=== PATIENT | female | born 1940 | race Caucasian/White ===

== ENCOUNTER 2022-01-15 14:02 | Emergency (ER) | payer OTHER, SELFPAY ==
--- NOTE | ~2022-01-15 | XR_ITS ---
EXAMINATION: XR chest 1V portable DATE: 01/15/2022 14:47 INDICATION: Weakness. COVID. TECHNIQUE: frontal view of the chest was obtained. COMPARISON: None FINDINGS: Mild opacities in the left lower lung zone. No pleural effusion or pneumothorax. The cardiomediastina l silhouette is normal. IMPRESSION: 1. Mild opacities in the left lower lung zone which could represent atelectasis or pneumonia. Reviewed, dictated and finalized at location A.
[2022-01-15 14:06] VITALS: BP 128/98; PULSE 111; RESP 20; TEMP 36.3; O2SAT 96
[2022-01-15 15:23] LABS: Basophils Percent Auto 0.4 % (0.2-1.2); Eosinophils Percent Auto 0.2 % (0-4.4); Hematocrit 40.8 % (37.0-47.0); Hemoglobin 13.1 g/dL (12.0-15.0); Immature Granulocyte Absolute 0.01 K/mm3 (0.00-0.031); Immature Granulocyte Percent A 0.2 % (0-0.5); Lymphocytes Percent Auto 20.7 % (18.3-44.2); Mean Corpuscular HGB Conc 32.1 g/dl (32-36); Mean Corpuscular Hemoglobin 29.2 pg (26-34); Mean Corpuscular Volume 90.9 fl (80-100); Mean Platelet Volume 9.4 fl (7.4-10.4); Monocytes Absolute Auto 0.7 K/mm3 (0.1-0.6); Monocytes Percent Auto 12.2 % (2.6-8.5); Neutrophils Absolute Auto 3.5 K/mm3 (1.3-6.7); Neutrophils Percent Auto 66.3 % (45.5-73.1); Platelet Count Result 244 k/mm3 (150-375); Red Blood Count 4.49 M/mm3 (4.2-5.4); Red Cell Distribution Width 14.3 % (11.5-14.5); White Blood Count 5.3 K/mm3 (4.5-10.0)
--- NOTE | 2022-01-15 15:24 | ED.GENADULT ---
HPI - General Adult General Chief complaint: Upper Respiratory Infection Stated complaint: weakness and diarrhea x 10 days, covid + 10 days Time Seen by Provider: 01/15/22 14:22 History of Present Illness HPI narrative: 81-year-old female with recent diagnosis of COVID presented to the emergency department for evaluation of generalized weakness due to decreased p.o. intake. Patient states she has had nausea without vomiting and has had a lot of diarrhea over the last few days. Patient states that she has been drinking Pedialyte and fluids but just feels generalized weakness. Patient states she does have some shortness of breath but states it is no different than her baseline shortness of breath. Related Data Home Medications Medication Instructions Recorded Confirmed aspirin 81 mg tablet,delayed 81 mg PO QPM 05/25/21 08/31/21 release (Franchesca Low Dose Aspirin) metformin 500 mg tablet See Rx Instructions .Route .COMPLEX 05/25/21 08/31/21 quinapril 40 mg tablet 40 mg PO QPM 05/25/21 08/31/21 simvastatin 40 mg tablet 40 mg PO QPM 05/25/21 08/31/21 verapamil 180 mg 24 hr 180 mg PO QAM 05/25/21 08/31/21 capsule,extended release gabapentin 300 mg capsule See Rx Instructions .Route .COMPLEX 08/31/21 08/31/21 Allergies Allergy/AdvReac Type Severity Reaction Status Date / Time nitrofurantoin Allergy Mild Dizziness Verified 08/31/21 10:52 Review of Systems Review of Systems: CONSTITUTIONAL: Generalized weakness EYES: Denies visual changes, redness, or discharge. ENT: Denies rhinorrhea, congestion, sore throat, or otalgia. CARDIOVASCULAR: Denies chest pain, palpitations, or edema. RESPIRATORY: Denies cough or dyspnea. GASTROINTESTINAL: Nausea and diarrhea GENITOURINARY: Denies dysuria or hematuria. SKIN: Denies rash or itching. MUSCULOSKELETAL: Denies back pain, joint pain, or myalgia. NEUROLOGIC: Denies headache, numbness, or weakness. [facility] Past Medical History Medical History Chicken pox Heel spur (~1994) History of cataract Vaginal infection Surgical History Surgical History History of cataract removal with insertion of prosthetic lens (~12/30/03) LEFT EYE History of cataract removal with insertion of prosthetic lens (~08/29/06) RIGHT EYE History of cholecystectomy (~1979) History of colonoscopy (~12/2001) History of colonoscopy (~11/2008) History of left knee replacement (~1999) History of lithotripsy (~09/06/08) Family History Family History Father , 71 Lung cancer Mother , 85 Natural Pneumonia Sibling Lung cancer Social History Social History Social History: Patient drinks caffeine daily. Smoking status: Never smoker Second hand tobacco smoke exposure: No Alcohol intake: never Substance use: never Substance use type: does not use Additional living arrangements comments: Patient is Gender identity (if verbalized by the patient): Female Sexual Orientation (if Verbalized by the Patient): Straight or Heterosexual Exam Narrative: APPEARANCE: Well appearing, no pain, no distress, well-nourished. HEAD: normocephalic, atraumatic. EYES: PERRLA/EOMI, conjunctivae clear. NOSE: Normal no drainage THROAT: Pharynx clear, no exudate. NECK: Supple. No adenopathy, no masses. RESPIRATORY: Airway patent, respirations nonlabored. Clear to auscultation bilaterally, no rales, rhonchi, wheezing. CARDIOVASCULAR: Regular rate and rhythm without murmurs rubs or gallops. ABDOMINAL: Soft, nontender, nondistended, normal bowel sounds MUSCULOSKELETAL: Moves all extremities. Strength/ROM intact, No edema, No calf tenderness. NEURO: Alert. Cranial nerves II through XII intact. Grossly intact SKIN: Warm, dry. Normal Color Course Course E
[2022-01-15 15:30] LABS: Lactic Acid Reflex 1.6 mmol/L (0.7-2.0)
[2022-01-15 15:30] LABS: Alanine Aminotransferase 17 U/L (6-35); Albumin Level 3.7 g/dL (3.5-5.1); Alkaline Phosphatase 84 U/L (38-126); Anion Gap 12 mmol/L (8-16); Aspartate Amino Transferase 37 U/L (14-36); Bilirubin,Total 0.8 mg/dL (0.2-1.3); Blood Urea Nitrogen 16 mg/dL (7-17); Calcium 8.8 mg/dL (8.4-10.2); Carbon Dioxide 19 mmol/L (22-30); Chloride 111 mmol/L (98-107); Estimated CRCL calculation 69 ml/min; Estimated Glomerular Filt Rate > 60; Glucose 123 mg/dL (65-110); Potassium 3.1 mmol/L (3.4-5.0); Sodium 142 mmol/L (137-145)
[2022-01-15 15:49] LABS: Atypical Lymphocytes Present; Platelet Estimate Adequate (Adequate)
[2022-01-15] MEDS: POTASSIUM CHLORIDE 20 MEQ PACKET (FOR LIQUID) 40 MEQ PO (16:02)
[2022-01-15 16:03] VITALS: BP 143/62; PULSE 86; RESP 16; O2SAT 96
[2022-01-15 16:45] VITALS: BP 121/83; PULSE 95; RESP 16; O2SAT 96
[2022-01-15 17:53] VITALS: BP 121/83; PULSE 93; RESP 16; O2SAT 94
== END 2022-01-15 17:56 | disposition home or self-care (01) ==
PROVIDERS: Emergency Provider Emergency Medicine; PCP Emergency Medicine
DX: R19.7 Diarrhea, unspecified (principal); R11.0 Nausea; Z86.16 Personal history of COVID-19; Z98.42 Cataract extraction status, left eye; Z98.41 Cataract extraction status, right eye; Z96.1 Presence of intraocular lens; Z79.84 Long term (current) use of oral hypoglycemic drugs; Z79.82 Long term (current) use of aspirin; Z96.652 Presence of left artificial knee joint
CPT/HCPCS: 36415; 71045; 80053; 83605; 85025; 99283; A9270

== ENCOUNTER 2025-05-04 16:27 | Emergency (ER) | payer MEDICARE, SELFPAY ==
[2025-05-04 16:30] VITALS: BP 123/76; PULSE 94; RESP 12; TEMP 36.4; O2SAT 98
[2025-05-04 17:40] LABS: Hematocrit 34.7 % (37.0-47.0); Hemoglobin 10.8 g/dL (12.0-15.0); Immature Granulocyte Percent A 0.5 % (0-0.5); Lymphocytes Absolute Auto 1.66 K/mm3 (0.9-3.2); Mean Corpuscular HGB Conc 31.1 g/dl (32-36); Mean Corpuscular Hemoglobin 30.3 pg (26-34); Mean Corpuscular Volume 97.2 fl (80-100); Nucleated Red Blood Cells Absolute Auto 0.000 K/mm3 (0.0-0.012); Nucleated Red Blood Cells Perc 0.0 % (0.0-0.2); Platelet Count Result 285 k/mm3 (150-375); Red Blood Count 3.57 M/mm3 (4.2-5.4); White Blood Count 10.7 K/mm3 (4.5-10.0)
[2025-05-04] MEDS: SODIUM CHLORIDE 0.9% IV 1,000 ML 999 ML IV CONT (17:40)
[2025-05-04 17:48] VITALS: BP 118/70; PULSE 93; RESP 14; O2SAT 100
[2025-05-04 17:52] LABS: INR 1.1; Partial Thromboplastin Time 27.1 Seconds (22.3-36.8); Prothrombin Time 13.9 Seconds (11.1-14.7)
[2025-05-04 17:54] LABS: Alanine Aminotransferase 12 U/L (6-35); Albumin Level 2.7 g/dL (3.5-5.1); Alkaline Phosphatase 67 U/L (38-126); Anion Gap 5 mmol/L (4-12); Aspartate Amino Transferase 19 U/L (14-36); Bilirubin,Total 0.3 mg/dL (0.2-1.3); Blood Urea Nitrogen 21 mg/dL (7-17); Calcium 9.4 mg/dL (8.4-10.2); Carbon Dioxide 24 mmol/L (22-30); Chloride 109 mmol/L (98-107); Estimated CRCL calculation 41 ml/min; Estimated Glomerular Filt Rate 45; Glucose 104 mg/dL (65-110); Need Manual Microscopic Reviewed; Non Pathogenic Casts 0-2; Potassium 5.0 mmol/L (3.4-5.0); Sodium 138 mmol/L (137-145); Total Protein 6.1 g/dL (6.3-8.2)
[2025-05-04 17:55] LABS: Add Urine Microscopic? YES; Appearance Urine Turbid (Clear); Glucose Urine UA Negative (Negative); Leukocyte Esterase Ur 2+ LEU/UL (Negative); Nitrate Urine Positive (Negative); Specific Grav Ur 1.023 (1.001-1.035)
--- NOTE | 2025-05-04 18:35 | ED.GENADULT ---
HPI - General Adult General Chief complaint: Urogenital-Female Stated complaint: hematuria in chester Time Seen by Provider: 05/04/25 16:42 History of Present Illness HPI narrative: Patient is an 85-year-old female who presents ER for blood in her Chester catheter. Patient had a Chester catheter placed today due to urinary retention. Apparently they only got out 360 mL of urine. But there was dark blood in the urine study sent her here for evaluation. Patient previously had issues with kidney stones in a urinary infection that led to a procedure at [facility] and is or E and then her subsequent placement in a facility in [place]. Patient has no abdominal pain. Denies fevers or chills or sweats. No additional concerns. She is not on any blood thinning medications. Related Data Home Medications ?Medication ?Instructions ?Recorded ?Confirmed ?Last Taken ?Type aspirin 81 mg tablet,delayed 81 mg PO QPM 05/25/21 11/05/24 Unknown History release (Franchesca Low Dose Aspirin) Allergies Allergy/AdvReac Type Severity Reaction Status Date / Time sulfamethoxazole (From Allergy Intermediate Itching Verified 11/05/24 14:11 Bactrim) trimethoprim (From Bactrim) Allergy Intermediate Itching Verified 11/05/24 14:11 nitrofurantoin Allergy Mild Dizziness Verified 11/05/24 14:11 Review of Systems Review of Systems: All systems reviewed & are unremarkable except as noted in HPI and below Constitutional: Constitutional: Reports no additional constitutional complaints Cardiovascular: Cardiovascular: Reports no additional cardiovascular complaints Respiratory: Respiratory: Reports no additional respiratory complaints Gastrointestinal: Gastrointestinal: Reports no additional gastrointestinal complaints Genitourinary: Genitourinary: Reports no additional female genitourinary complaints [facility] Past Medical History Medical History Gout Dyspnea on exertion UTI (urinary tract infection) Dysuria Heel spur (~1994) Vaginal infection Stomach pain Poor appetite Painful urination Frequent urination Chicken pox History of cataract Surgical History Surgical History History of lithotripsy (~09/06/08) History of cataract removal with insertion of prosthetic lens (~08/29/06) RIGHT EYE History of cataract removal with insertion of prosthetic lens (~12/30/03) LEFT EYE History of left knee replacement (~1999) History of colonoscopy (~11/2008) History of colonoscopy (~12/2001) History of cholecystectomy (~1979) Family History Family History Father , 71 Lung cancer Mother , 85 Natural Pneumonia Sibling Lung cancer Social History Social History Social History: Patient drinks caffeine occasionally. Smoking status: Never smoker Second hand tobacco smoke exposure: No Alcohol intake: former Substance use: never Substance use type: does not use Lack of Transportation: No Lack of Food: Never True Current Housing: I Have Housing Concerned About Future Housing: No Difficulty Paying Gas/Electric Bills: No Difficulty Paying for Meds: No Currently Unemployed: No Education: High School Diploma/GED Difficulty w/ Childcare or Family Care: No Living arrangements: alone Additional living arrangements comments: Patient is Occupation/Education: retired Gender identity (if verbalized by the patient): Female Sexual Orientation (if Verbalized by the Patient): Straight or Heterosexual Exam Narrative: GENERAL: Well-appearing, well-nourished, and in no acute distress. HEAD: Normocephalic, atraumatic. ENT: Mucous membranes moist. CHEST: Clear to auscultation. No respiratory distress. HEART: Regular rate and rhythm. Normal peripheral pulses. ABDOMEN: Soft, nontender, nondistended. EXTREMITIES: Normal range of motion. No edema. SKIN: Warm, dry, no rash. NEURO:Alert and oriented x3. PSYCH: Normal mood and affect. Course Course Emergency Course: Dark blood that looks like sediment from Chester. Chester irrigated and there are no clots. Urine is now with a brownish appearance and not bright red blood. Will place on antibiotic in case there is infection but there is no bacteria on the urinalysis yeah is nitrate positive. Patient appropriate for discharge back to her facility. Patient has follow-up with her urologist in 2 days. Vital Signs Vital signs: Vital Signs Temperature 97.6 F 05/04/25 16:30 Pulse Rate 94 05/04/25 16:30 Respiratory Rate 12 05/04/25 16:30 Blood Pressure 123/76 05/04/25 16:30 Pulse Oximetry 98 05/04/25 16:30 Oxygen Delivery Room Air 05/04/25 16:30 Temperature 97.6 F 05/04/25 16:30 Pulse Rate 93 05/04/25 17:48 Respiratory Rate 14 05/04/25 17:48 Blood Pressure 118/70 05/04/25 17:48 Pulse Oximetry 100 05/04/25 17:48 Oxygen Delivery Room Air 05/04/25 16:30 MDM Differential Diagnosis Differential Diagnosis: Urinary retention, kidney stone, cystitis, bladder stone, bladder clots Lab Data [facility] Lab Attestation statement: I personally reviewed the patient's lab results. 05/04/25 17:33 05/04/25 17:33 Labs: Lab Results 05/04/25 Range/Units 17:33 WBC 10.7 H (4.5-10.0) K/mm3 RBC 3.57 L (4.2-5.4) M/mm3 Hgb 10.8 L (12.0-15.0) g/dL Hct 34.7 L (37.0-47.0) % MCV 97.2 (80-100) fl MCH 30.3 (26-34) pg MCHC 31.1 L (32-36) g/dl RDW 16.2 H (11.5-14.5) % Plt Count 285 (150-375) k/mm3 MPV 8.9 (7.4-10.4) fl Immature Gran % (Auto) 0.5 (0-0.5) % Neut % (Auto) 78.3 H (45.5-73.1) % Lymph % (Auto) 15.6 L (18.3-44.2) % [place] % (Auto) 4.9 (2.6-8.5) % Eos % (Auto) 0.4 (0-4.4) % Baso % (Auto) 0.3 (0.2-1.2) % Lymph # (Auto) 1.66 (0.9-3.2) K/mm3 [place] # (Auto) 0.5 (0.1-0.6) K/mm3 Eos # (Auto) 0.0 (0-0.3) K/mm3 Baso # (Auto) 0.0 (0.0-0.1) K/mm3 Abs Immat Gran (auto) 0.05 H (0.00-0.031) K/mm3 Absolute Neuts (auto) 8.4 H (1.3-6.7) K/mm3 Absolute Nucleated RBC 0.000 (0.0-0.012) K/mm3 Nucleated RBC % 0.0 (0.0-0.2) % PT 13.9 (11.1-14.7) Seconds INR 1.1 APTT 27.1 (22.3-36.8) Seconds Sodium 138 (137-145) mmol/L Potassium 5.0 (3.4-5.0) mmol/L Chloride 109 H (98-107) mmol/L Carbon Dioxide 24 (22-30) mmol/L Anion Gap 5 (4-12) mmol/L BUN 21 H (7-17) mg/dL Creatinine 1.15 H (0.7-1.0) mg/dL Estim Creat Clear Calc 41 ml/min Estimated GFR 45 L (59 - ) Glucose 104 (65-110) mg/dL Calcium 9.4 (8.4-10.2) mg/dL Total Bilirubin 0.3 (0.2-1.3) mg/dL AST 19 (14-36) U/L ALT 12 (6-35) U/L Alkaline Phosphatase 67 (38-126) U/L Total Protein 6.1 L (6.3-8.2) g/dL Albumin 2.7 L (3.5-5.1) g/dL Urine Color Brown H (Yellow) Urine Appearance Turbid H (Clear) Urine pH 5.0 (5.0-9.0) Ur Specific [place] 1.023 (1.001-1.035) Urine Protein 1+ H (Negative) mg/dL Urine Glucose (UA) Negative (Negative) mg/dL Urine Ketones Negative (Negative) mg/dL Ur Blood (Man) 1+ H (Negative) Urine Nitrate Positive H (Negative) Urine Bilirubin 1+ H (Negative) Urine Urobilinogen 0.2 (<2.0) mg/dL Add Ur Microanalysis Reviewed Leukocyte Esterase Rfl 2+ H (Negative) KARLI/UL Urine RBC >100 H (0-2) /hpf Urine WBC 51-100 H (0-3) /hpf Ur Squamous Epith Cells Few (Few) /hpf Amorphous Sediment Few H (None) Urine Bacteria None seen /hpf Urine Casts 0-2 Discharge Plan Discharge Clinical Impression: Hematuria, Acute UTI Patient Disposition: Home Condition: Stable Instructions: Antibiotic Form, Urinary Tract Infection in Women (ED) Additional Instructions: You should return to the emergency department if you develop severe nausea and vomiting and are unable to keep liquids down, if you develop severe back/flank or stomach pain, or if your symptoms are not clearly improving at home. Keep your urology follow-up. Patient Language: Persian Prescriptions: New cefuroxime axetil 500 mg tablet 500 mg PO BID Qty: 14 0RF No Action aspirin [Franchesca Low Dose Aspirin] 81 mg tablet,delayed release (DR/EC) 81 mg PO QPM cholecalciferol (vitamin D3) 1,250 mcg (50,000 unit) capsule See Rx Instructions .ROUTE .COMPLEX Qty: 12 2RF Dose Instruction: TAKE 1 CAPSULE BY MOUTH ONE TIME PER WEEK Rx Instructions: TAKE 1 CAPSULE BY MOUTH ONE TIME PER WEEK verapamil 180 mg tablet extended release See Rx Instructions .ROUTE .COMPLEX Qty: 90 2RF Dose Instruction: TAKE 1 TABLET BY MOUTH EVERY DAY IN THE MORNING Rx Instructions: TAKE 1 TABLET BY MOUTH EVERY DAY IN THE MORNING metformin 500 mg tablet See Rx Instructions .ROUTE .COMPLEX Qty: 180 2RF Dose Instruction: TAKE 1 TABLET BY MOUTH EVERY MORNING AND TAKE 1 TABLET BY MOUTH EVERY EVENING BEFORE DINNER Rx Instructions: TAKE 1 TABLET BY MOUTH EVERY MORNING AND TAKE 1 TABLET BY MOUTH EVERY EVENING BEFORE DINNER allopurinol 300 mg tablet See Rx Instructions .ROUTE .COMPLEX Qty: 90 2RF Dose Instruction: TAKE 1 TABLET BY MOUTH EVERY DAY IN THE MORNING Rx Instructions: TAKE 1 TABLET BY MOUTH EVERY DAY IN THE MORNING lisinopril 40 mg tablet See Rx Instructions .ROUTE .COMPLEX Qty: 90 0RF Dose Instruction: TAKE 1 TABLET BY MOUTH EVERY DAY Rx Instructions: TAKE 1 TABLET BY MOUTH EVERY DAY famotidine 20 mg tablet See Rx Instructions .ROUTE .COMPLEX Qty: 90 0RF Dose Instruction: TAKE 1 TABLET BY MOUTH EVERY DAY Rx Instructions: TAKE 1 TABLET BY MOUTH EVERY DAY gabapentin 300 mg capsule See Rx Instructions .ROUTE .COMPLEX Qty: 360 0RF Dose Instruction: TAKE 2 CAPSULES BY MOUTH TWICE A DAY Rx Instructions: TAKE 2 CAPSULES BY MOUTH TWICE A DAY simvastatin 40 mg tablet See Rx Instructions .ROUTE .COMPLEX Qty: 90 0RF Dose Instruction: TAKE 1 TABLET BY MOUTH EVERY DAY IN THE EVENING Rx Instructions: TAKE 1 TABLET BY MOUTH EVERY DAY IN THE EVENING Follow-up/Referrals: Philippe Parrish MD [Primary Care Provider, Internal Medicine] - 1 Week
== END 2025-05-04 20:41 ==
PROVIDERS: Emergency Provider Emergency Medicine; PCP Emergency Medicine
DX: N39.0 Urinary tract infection, site not specified (principal); R31.9 Hematuria, unspecified; M10.9 Gout, unspecified; Z96.0 Presence of urogenital implants; Z96.652 Presence of left artificial knee joint; Z96.1 Presence of intraocular lens; Z98.42 Cataract extraction status, left eye; Z98.41 Cataract extraction status, right eye; Z90.49 Acquired absence of other specified parts of digestive tract; Z79.82 Long term (current) use of aspirin; Z79.899 Other long term (current) drug therapy
CPT/HCPCS: 36415; 80053; 81001; 85025; 85610; 85730; 87086; 96360; 99283; A9270; J7030